=== PATIENT | female | born 1985 ===

== ENCOUNTER 2024-06-07 16:27 | Outpatient (REF) | payer OTHER, SELFPAY ==
[2024-06-08 11:19] LABS: HPV 16,18/45 See PAP report
== END 2024-06-07 16:28 | disposition home or self-care (01) ==
LOC: HO.HHCLNP 16:27
PROVIDERS: Visit Provider Advanced Practice Midwife
DX: Z12.4 Encounter for screening for malignant neoplasm of cervix (principal); Z11.51 Encounter for screening for human papillomavirus (HPV)
CPT/HCPCS: 87624; 88175

== ENCOUNTER 2025-06-07 19:13 | Outpatient (REF) | payer OTHER, SELFPAY ==
--- OUTSIDE RECORDS SUMMARY | 2025-06-07 15:45 | XMS_ITS | Encounter Summary ---
Author Organization [facility] Address [address] [facility] [address] [place] [address] Care Team Providers Care Machine Sweeper Brush Maker Name Role Phone Lauro Ornelas MD Primary Care Prov ider Reason for Referral * Imaging (Urgent) - Pending Review Specialty Diagnoses / Procedures Referred By Chemo nichole Referred To Contact Radiology Diagnoses Mass overlapping multiple quadrants of left breast Procedures BI Mammogram Diagnostic Tomosynthesis Bilateral Maria Guadalupe Osman CNM [address] [place] [address] Phone: tel: fax: Referral ID Status Reason Start Date Expiration Date V isits Requested Visits Authorized [id number] Pending Review 06/07/2025 06/07/2026 1 1 * Imaging (Urgent) - Pending Review Specialty Diagnoses / Procedures Referred By Chemo nichole Referred To Contact Radiology Diagnoses Mass overlapping multiple quadrants of left breast Procedures BI US Breast Limited Left Maria Guadalupe Osman CNM [address] [place] [address] Phone: tel: fax: Referral ID Status Reason Start Date Expiration Date V isits Requested Visits Authorized [id number] Pending Review 06/07/2025 06/07/2026 1 1 Reason for Visit * Reason Comments pap Encounter Details Date Type Department Care Team (Latest Contact Info) Description 06/07/2025 3:45 PM EST Procedure Visit [facility] [address] [place] [address] JacquiMaria Guadalupe, CNM [address] [place] [address] Cervical cancer screening (Primary Dx); Encounter for surveillance of contraceptive pills; Mass overlapping multiple quadrants of left breast Social History Tobacco Use Types Packs/Day Years Used Date Smoking Tobacco: Never Passive Smoke Exposure: Never Smokeless Tobacco: Never Tobacco Cessation:Counseling Given: Not Answered Alcohol Use Standard Drinks/Week Comments Not Currently 0 (1 standard drink = 0.6 oz pur e alcohol) Depression Answer Date Recorded Patient Health Questionnaire-9 Score 3 09/06/2024 Patient Health Questionnaire-9 Score 3 09/06/2024 Last PHQ-9: Questionnaire Data Not on file 0 09/06/2024 Housing Stability Answer Date Recorded What is your housing situation today? I have yana alexander 09/06/[address] you li ve. Do you have problems with any of the following? None of the above 09/06/2024 Food Insecurity Answer Date Recorded Within the past 12 months, y ou worried that your food would run out before you got money to buy more: Never True 09/06/2024 Within the past 12 months,th e food you bought just didn't last and you didn't have enough money to get more: Never True Transportation Answer Date Recorded In the past 12 months, has l ack of transportation kept you from medical appts, meetings, work or from getting things needed for daily living? No 09/06/2024 Utilities Answer Date Recorded In the past 12 months, has t he electric, gas, oil or water company threatened to shut off services in your home? No 09/06/2024 Depression Answer Date Recorded Patient Health Questionnaire-2 Score 2 09/06/2024 Internet Access Answer Date Recorded Internet Access Q1 Yes 09/06/2024 Internet Access Q2 Not on file 09/06/2024 Comments No Intention Date Recorded No desire to become (finding) 1 08/08/2024 Sex and Gender Information Value Date Recorded Sex Assigned at Female 04/21/2022 10:36 AM EDT Legal Sex Female 10:36 AM EDT Gender Identity Female 04/21/2022 10:36 AM EDT Sexual Orientation Straight 12/19/2022 9: 11 AM EDT documented as of this encounter Last Filed Vital Signs Vital Sign Reading Time Taken Comments Blood Pressure 120/70 06/07/2025 3:39 PM EST Pulse 100 06/07/2025 3:39 PM EST Temperature 37 C (98.6 F) 06/07/2025 3:39 PM EST Respiratory Rate 16 06/07/2025 3:39 PM EST Oxygen Saturation 99% 06/07/2025 3:39 PM EST Inhaled Oxygen Concentration - - Weight 50.7 kg (111 lb 12.8 oz) 06/07/2025 3:39 PM EST Height - - Body Mass Index 23.37 05/17/2025 3:50 PM EST documented in this encounter Progress Notes * Maria Guadalupe Osman CNM - 06/07/2025 3:45 PM EST Subjective Patient ID: Alexus Marquez is a 39 y.o. female who presents for pap LSIL, HPV pos pap 05/2024, preceded by NIL/HPV neg pap 2019. Due for co-testing now. Received HPV series this year. Mammogram BIRADS 1, cat c 10/2024. She would like to review letter about breast density that she received from radiology. Notes left breast mass that has been present for over a year. It looks like imaging ordered in 2023, not done. Custodial AMAB partner at last visit with me. On Nancy. 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 Concerned about impact on vascular health with combination oral contraceptive pill. It sounds like mother may have had blood clot. Would like to discuss control options, specifically implant and pill. 1 fpc AMAB partner, no safety concerns. Review of Systems Eyes: Negative for visual disturbance. Respiratory: Negative for shortness of breath. Cardiovascular: Negative for chest pain and leg swelling. Genitourinary: Negative for dyspareunia, dysuria, frequency, genital sores, hematuria, menstrual problem, pelvic pain, urgency, vaginal bleeding, vaginal discharge and vaginal pain. No abnormal bleeding, no breast pain, no nipple discharge Skin: Negative for color change. Neurological: Negative for headaches. Objective BP 120/70 (BP Location: Left arm, Patient Position: Sitting, BP Cuff Size: Adult) Pulse 100 Temp 98.6 ??F (37 ??C) (Oral) Resp 16 Wt 111 lb 12.8 oz (50.7 kg) LMP 05/24/2025 SpO2 99% BMI23.37 kg/m?? Physical Exam Manager Clinical present: declines clinical biostatistics director. Constitutional: Appearance: Normal appearance. Chest: Breasts: Right: Normal. No swelling, bleeding, inverted nipple, mass, nipple discharge, skin change or tenderness. Left: Mass present. No swelling, bleeding, inverted nipple, nipple discharge, skin change or tenderness. Comments: 1.5cm mass left breast at 6 oclock, mobile (noted on 07/2023 exam as well) Pacemaker in left chest Genitourinary: General: Normal vulva. Labia: Right: No rash, tenderness, lesion or injury. Left: No rash, tenderness, lesion or injury. Vagina: Normal. No signs of injury and foreign body. No vaginal discharge, erythema, tenderness, bleeding or lesions. Cervix: No cervical motion tenderness, discharge, friability, lesion, erythema, cervical bleeding or eversion. Uterus: Normal. Not enlarged and not tender. Adnexa: Right adnexa normal and left adnexa normal. Right: No mass, tenderness or fullness. Left: No mass, tenderness or fullness. Lymphadenopathy: Upper Body: Right upper body: No supraclavicular or axillary adenopathy. Left upper body: No supraclavicular or axillary adenopathy. Neurological: Mental Status: She is alert. Psychiatric: Mood and Affect: Mood normal. Behavior: Behavior normal. Assessment/Plan Diagnoses and all orders for this visit: Cervical cancer screening - Pap Smear Cotest 1 year if normal/HPV negative Encounter for surveillance of contraceptive pills Reviewed implant vs progestin only pill. Would like to try progestin only pill. Rx sent in, start when due to start next pack of pills. Reviewed side effects and danger signs. Irregular or absent periods common, absent periods not worrisome. Mass overlapping multiple quadrants of left breast Diagnostic imaging ordered. Will contact with results. Reviewed implications of dense breast tissue. Lifetime risk of breast cancer 9.2%. Will continue with routine screening if no additional testing indicated after imaging ordered today. documented in this encounter Plan of Treatment Upcoming Encounters Date Type Department Care Team (Late st Contact Info) Description 06/12/2025 3:30 PM EST Telemedicine [facility] MED & PEDS [address] [place] [address] Lauro Ornelas MD [address] [place] [address] Scheduled Orders Name Type Priority Associated Diagnoses Orde r Schedule Pap Smear Pathology and Cytology Routine Cervical cancer screening Ordered: 06/07/2025 BI US Breast Limited Left Imaging Urgent Mass overlapping multiple quadrants of left breast Expected: 06/07/2025, Expires: 06/07/2026 BI Mammogram Diagnostic Tomosynthesis Bilateral Imaging Urgent Mass overlapping multiple quadrants of left breast Expected: 06/07/2025, Expires: 08/08/2026 documented as of this encounter Visit Diagnoses Diagnosis Cervical cancer screening- Primary Screening for malignant neoplasm of the cervix Encounter for surveillance of contraceptive pills Mass overlapping multiple quadrants of left breast documented in this encounter Additional Health Concerns Assessment Noted Time PHQ-9 Depression Total Score: 3 09/07/19 25 10:12 AM EDT documented as of this encounter Care Teams Machine Sweeper Brush Maker Relationship Specialty Start Date End Date Lauro Ornelas MD [address] [place] [address] PCP - General Internal Medicine 05/04/20 documented as of this encounter
--- OUTSIDE RECORDS SUMMARY | 2025-06-07 21:10 | XMS_ITS | Encounter Summary ---
Author Organization [employer] Address [address] [place] [address] Care Team Providers Care Die Cast Engineer Name Role Phone Lauro Ornelas MD Primary Care Prov ider Encounter Details Date Type Department Care Team (Late st Contact Info) Description 10/18/2024 Orders Only [facility] MED & PEDS [address] [place] [address] Merry Olvera Social History Tobacco Use Types Packs/Day Years Used Date Smoking Tobacco: Never Passive Smoke Exposure: Never Smokeless Tobacco: Never Alcohol Use Standard Drinks/Week Comments Not Currently [...] Q2 Not on file 09/06/2024 Comments No Sex and Gender Information Value Date Recorded Sex Assigned at Female 04/21/2022 10:36 AM EDT Legal Sex Female 10:36 AM EDT Gender Identity Female 04/21/2022 10:36 AM EDT Sexual Orientation Straight 12/19/2022 9: 11 AM EDT documented as of this encounter Plan of Treatment Upcoming Encounters Date Type Department Care Team (Late st Contact Info) Description 06/12/2025 3:30 PM EST Telemedicine [facility] MED [facility] PEDS [address] [place], [place] [phone] Lauro Ornelas MD [address] [place] [address] documented as of this encounter Procedures Procedure Name Priority Date/Time Associated Diagnosis Comments HPV MRNA E6/E7 REFLEX TO HPV 16, 18/45 Routine 06/07/2024 12:00 AM EST documented in this encounter Results * (ABNORMAL) HPV mRNA E6/E7 w/Reflex to HPV Genotypes 16, 18/45 (06/07/2024 12:00 AM EST) Historical Provider LAB CYTOLOGY ORDERABLES F inal Result documented in this encounter Visit Diagnoses Not on filedocumented in this encounter Additional Health Concerns Assessment Noted Time PHQ-9 Depression Total Score: 3 09/07/19 25 10:12 AM EDT documented as of this encounter Care Teams Die Cast Engineer Relationship Specialty Start Date End Date Lauro Ornelas MD [address] [place] [address] PCP - General Internal Medicine 05/04/20 documented as of this encounter
--- OUTSIDE RECORDS SUMMARY | 2025-06-07 21:10 | XMS_ITS | Encounter Summary ---
Author Organization [employer] Address [address] [facility] 7[address] [place] [address] Care Team Providers Care Labor Gang Supervisor Name Role Phone Lauro Ornelas MD Primary Care Prov ider Encounter Details Date Type Department Care Team (Latest Contact Info) Description 06/07/2025 Travel Social History Tobacco Use Types Packs/Day Years [...] is your housing situation today? I have ayna alexander 09/06/[address] you [...] Info) Description 06/12/2025 3:30 PM EST Telemedicine [facility] MED & PEDS [address] [place] [address] Lauro Ornelas MD [address] [place] [address] documented as of this encounter Visit Diagnoses Not on filedocumented in this encounter Additional Health Concerns Assessment Noted Time PHQ-9 Depression Total Score: 3 09/07/19 25 10:12 AM EDT documented as of this encounter Care Teams Labor Gang Supervisor Relationship Specialty Start Date End Date Lauro Ornelas MD [address] [place] [address] PCP - General Internal Medicine 05/04/20 documented as of this encounter
--- OUTSIDE RECORDS SUMMARY | 2025-06-07 21:10 | XMS_ITS | Encounter Summary ---
Author Organization [employer] Address [address] [facility] [address] [place] [address] Care Team Providers Care Sales Service Manager Name Role Phone Lauro Ornelas MD Primary Care Prov ider Reason for Visit * Reason Comments Med Refill Encounter Details Date Type Department Care Team ([facility] st Contact Info) Description 11/21/2024 Refill [facility] MED & PEDS [address] [place], [place] [phone] Lauro Ornelas MD [address] [place] [address] Anxiety Social History Tobacco Use Types Packs/Day Years [...] Info) Description 06/12/2025 3:30 PM EST Telemedicine [facility] MED & PEDS [address] [place] [address] Lauro Ornelas MD [address] [place] [address] documented as of this encounter Visit Diagnoses Diagnosis Anxiety Anxiety state, unspecified documented in this encounter Additional Health Concerns Assessment Noted Time PHQ-9 Depression Total Score: 3 09/07/19 25 10:12 AM EDT documented as of this encounter Care Teams Sales Service Manager Relationship Specialty Start Date End Date Lauro Ornelas MD [address] [place] [address] PCP - General Internal Medicine 05/04/20 documented as of this encounter
--- OUTSIDE RECORDS SUMMARY | 2025-06-07 21:10 | XMS_ITS | Encounter Summary ---
Author Organization [employer] Address [address] [facility] [address] [place] [address] Care Team Providers Care Epic Cadence Specialists Name Role Phone Luaro Ornelas MD Primary Care Prov ider Reason for Visit * Reason Onset Date Comments Appointment Request 10/20/2023 Encounter Details Date Type Department Care Team (Late st Contact Info) Description 10/20/2023 Telephone [facility] [address] [place] [address] Lauro Ornelas MD [address] [place], [place] [phone] Appointment Request Social History Tobacco Use Types Packs/Day Years Used Date Smoking Tobacco: Never Passive Smoke Exposure: Never Smokeless Tobacco: Never Alcohol Use Standard Drinks/Week Comments Not Currently 0 (1 standard drink = 0.6 oz pur e alcohol) Depression Answer Date Recorded Patient Health Questionnaire-9 Score 7 08/06/2023 Patient Health Questionnaire-9 Score 7 08/06/2023 Last PHQ-9: Questionnaire Data Not on file 0 08/06/2023 Housing Stability Answer Date Recorded What is your housing situation today? I have yana alexander 04/13/[address] you li ve. Do you have problems with any of the following? None of the above 04/13/2023 Food Insecurity Answer Date Recorded Within the past 12 months, y ou worried that your food would run out before you got money to buy more: Never True 04/13/2023 Within the past 12 months,th e food you bought just didn't last and you didn't have enough money to get more: Never True Transportation Answer Date Recorded In the past 12 months, has l ack of transportation kept you from medical appts, meetings, work or from getting things needed for daily living? No 04/13/2023 Utilities Answer Date Recorded In the past 12 months, has t he electric, gas, oil or water company threatened to shut off services in your home? No 04/13/2023 Depression Answer Date Recorded Patient Health Questionnaire-2 Score 0 08/06/2023 Comments No Sex and Gender Information Value Date Recorded Sex Assigned at Female 04/21/2022 10:36 AM EDT Legal Sex Female 10:36 AM EDT Gender Identity Female 04/21/2022 10:36 AM EDT Sexual Orientation Straight 12/19/2022 9: 11 AM EDT documented as of this encounter Miscellaneous Notes * Telephone Encounter - Yury Magdaleno - 10/20/2023 12:06 PM EDT Tc from pt requesting to r/s Derm appt for 11/12. Please contact pt at [phone]. documented in this encounter Plan of Treatment Upcoming Encounters Date Type Department Care Team (Late st Contact Info) Description 06/12/2025 3:30 PM EST Telemedicine [facility] MED & PEDS [address] [place] [address] Lauro Ornelas MD [address] [place] [address] documented as of this encounter Visit Diagnoses Not on filedocumented in this encounter Additional Health Concerns Assessment Noted Time PHQ-9 Depression Total Score: 7 08/06/19 24 1:13 PM EST documented as of this encounter Care Teams Epic Cadence Specialists Relationship Specialty Start Date End Date Lauro Ornelas MD [address] [place] [address] PCP - General Internal Medicine 05/04/20 documented as of this encounter
--- OUTSIDE RECORDS SUMMARY | 2025-06-07 21:10 | XMS_ITS | Encounter Summary ---
Author Organization [employer] Address [address] [facility] [address] [place] [address] Care Team Providers Care Divisional Merchandising Manager Name Role Phone Lauro Ornelas MD Primary Care Prov ider Encounter Details Date Type Department Care Team (Late st Contact Info) Description 06/16/2023 Telephone [facility] [address] [place] [address] Lauro Ornelas MD [address] [place], [place] [phone] Social History Tobacco Use Types Packs/Day Years Used Date Smoking Tobacco: Never Passive Smoke Exposure: Never Smokeless Tobacco: Never Alcohol Use Standard Drinks/Week Comments Defer 0 (1 standard drink = 0.6 oz pur e alcohol) Depression Answer Date Recorded Patient Health Questionnaire-9 Score 0 07/30/2022 Housing Stability Answer Date Recorded What is [...] Date Recorded Patient Health Questionnaire-2 Score 0 07/30/2022 Comments Unknown Sex and Gender Information Value Date Recorded Sex Assigned at Female 04/21/2022 10:36 AM EDT Legal Sex Female 10:36 AM EDT Gender Identity Female 04/21/2022 10:36 AM EDT Sexual Orientation Straight 12/19/2022 9: 11 AM EDT documented as of this encounter Plan of Treatment Upcoming Encounters Date Type Department Care Team (Late st Contact Info) Description 06/12/2025 3:30 PM EST Telemedicine [facility] MED & PEDS [address] [place] [address] Lauro Ornelas MD [address] [place] [address] documented as of this encounter Visit Diagnoses Not on filedocumented in this encounter Additional Health Concerns Assessment Noted Time PHQ-9 Depression Total Score: 0 07/30/19 23 2:13 PM EST documented as of this encounter Care Teams Divisional Merchandising Manager Relationship Specialty Start Date End Date Lauro Ornelas MD [address] [place] [address] PCP - General Internal Medicine 05/04/20 documented as of this encounter
--- OUTSIDE RECORDS SUMMARY | 2025-06-07 21:10 | XMS_ITS | Encounter Summary ---
Author Organization [employer] Address [address] [facility] [address] [place] [address] Care Team Providers Care Back Tufter Name Role Phone Lauro Ornelas MD Primary Care Prov ider Reason for Visit * Reason Onset Date Comments referral bill 04/25/2025 Encounter Details Date Type Department Care Team ([facility] st Contact Info) Description 04/25/2025 Telephone [facility] MED & PEDS [address] [place] [address] Lauro Ornelas MD [address] [place] [address] referral bill Social History Tobacco Use Types Packs/Day Years [...] encounter Miscellaneous Notes * Telephone Encounter - Kavya Pablo RN - 04/25/2025 11:04 AM EST Called pt regarding cardiology referral, spoke to pt through [employer] Retail Supervisor #[id number]. Pt reports when she spoke to the cardiology office about upcoming follow up appointment, they told her she would have to pay regarding her insurance. Pt reports goes to [facility] and has never had to pay before. Advised could be the referral needs to be renewed or the office may not have any updated insura nce information. Advised pt to call [facility] for guidance, call cardiology to verify her valid insurance and we will submit a new cardiology referral to update. Pt understands and agrees with plan. Insurance verified MH. * Telephone Encounter - Mary Luna - 04/25/2025 9:22 AM EST Tc from pt regarding cardiology referral and states [facility] and they advised call pcp office and have provider call us to let us know referral is important and you do not have the means to pay for apt so you are not billed . Air Brake Worker does not see any cardiology referral but [facility] Contact pt at [phone] (singaporean) documented in this encounter Plan of Treatment Upcoming Encounters Date Type Department Care Team (Late st Contact Info) Description 06/12/2025 3:30 PM EST Telemedicine [facility] MED & PEDS [address] [place] [address] Lauro Ornelas MD [address] [place] [address] documented as of this encounter Visit Diagnoses Not on filedocumented in this encounter Additional Health Concerns Assessment Noted Time PHQ-9 Depression Total Score: 3 09/07/19 25 10:12 AM EDT documented as of this encounter Care Teams Back Tufter Relationship Specialty Start Date End Date Lauro Ornelas MD [address] [place] [address] PCP - General Internal Medicine 05/04/20 documented as of this encounter
--- OUTSIDE RECORDS SUMMARY | 2025-06-07 21:10 | XMS_ITS | Clinical Summary ---
Author Organization [employer] Address [address] [facility] 7[address] [place] [address] Care Team Providers Care Group Work Program Aide Name Role Phone Lauro Ornelas MD Primary Care Prov ider Allergies No known active allergies Medications * This document contains information received from the source organization and may not represent a complete record from that organization. calcium carbonate (Os-Damion) 1250 (500 Ca) MG chewable tablet Take 1 tablet by mouth as needed (OTC) Active cholecalcifero l (Vitamin D-3) 10 MCG (400 UNIT) capsule Take 1 capsule by mouth daily (OTC) Active ceramides (Cerave) lotion Apply 1 drop topically every 12 (twelve) hours. 05/04/20 20 Active ibuprofen 600 MG tabletIndicati ons:Periodonta l disease Take 1 tablet (600 mg) by mouth every 6 (six) hours if needed for mild pain for up to 20 doses. 20 tablet 05/10/20 24 Active hydrOXYzine HCl (Atarax) 25 MG tablet Take 1 tablet (25 mg) by mouth if needed in the morning, at noon, and at bedtime for anxiety. 90 tablet 3 05/17/2025 4:32 PM EST 11/23/19 25 025 Active traZODone (Desyrel) 50 MG tablet Take 1 tablet (50 mg) by mouth at bedtime. 90 tablet 3 05/17/2025 4:32 PM EST 11/23/19 25 026 Active Drospirenone (Slynd) 4 MG tablet Take 1 tablet by mouth Once per day. 28 tablet 11 06/07/20 25 Active drospirenone-e thinyl estradiol (Nancy, Ocella) 3-0.03 MG tablet Take 1 tablet by mouth Once per day. 90 tablet 3 05/04/2025 8:21 AM EST 11/23/19 25 025 Discontinued Active Problems Problem Noted Date Diagnosed Date Numbness and tingling of both legs 05/17/2025 Immunization due 08/06/2023 Exercise counseling 07/30/2022 Dietary counseling 07/30/2022 Annual physical exam 07/30/2022 Assessment & Plan (09/06/2024 4:26 PM EDT): Normal physical examination Will order routine blood work Mammogram will be ordered Assessment & Plan (07/30/2022 5:30 PM EST): Will place order to get blood work, physical examination was unremarkable. Anxiety 07/30/2022 Assessment & Plan (08/06/2023 12:55 PM EST): Continue hydroxyzine as needed, no changes will be made, no suicidal/homicidal ideas Assessment & Plan (11/04/2022 1:06 PM EDT): Assessment: Patient with anxiety, (difficult to control worry, sadness, periods of heart palpitations, increased tearfulness, and fear of her mothers ) in the context of biopsychosocial stressor of her mother living in [place] and unable to see her or for her to fly. Patient will benefit from OP therapy. At this time Alexus Marquez meets criteria for Visit Diagnoses: Problem List Items Addressed This Visit Other Anxiety Patient ready to address current needs Yes Strengths include previous success with OP therapy PLAN: 1. Follow up with [facility]: Not recommended for follow-up 2. Patient goal is to engage in OP therapy 3. Behavioral Recommendations a. Deep Breathing b. Walking Assessment & Plan (10/16/2022 8:40 AM EDT): On hydroxyzine as needed, will refer to behavioral therapist, no suicidal/homicidal ideas Assessment & Plan (07/30/2022 5:29 PM EST): Following counselor, no suicidal/homicidal ideas, continue hydroxyzine, Second degree AV block 06/24/2022 Assessment & Plan (09/06/2024 4:26 PM EDT): Followed by cardiology, device recently examined, Assessment & Plan (08/06/2023 12:55 PM EST): Followed by cardiology, no new events, follow up reccomendations Assessment & Plan (10/16/2022 8:40 AM EDT): Followed by cardiology, no new events, will follow specialist recommendations Assessment & Plan (07/30/2022 5:30 PM EST): Follow up cardiology, wound healed well Encounters Date Type Department Care Team Description 06/07/2025 3:45 PM EST Procedure Visit [facility] [address] [place] [phone] Codey Lu CNM Cervical cancer screening (Primary Dx); Encounter for surveillance of contraceptive pills; Mass overlapping multiple quadrants of left breast 06/07/2025 Travel 06/06/2025 Telephone [facility] [address] [place] [phone] Faiza Ramsey MA 05/17/2025 4:00 PM EST Office Visit [facility] [address] [place] [address] Reyna Steinberg MD Numbness and tingling of both legs (Primary Dx) 05/17/2025 Travel 05/16/2025 Telephone [facility] [address] [place] [address] Lauro Ornelas MD Nurse Triage 04/25/2025 Telephone [facility] [address] [place] [address] Lauro Ornelas MD referral bill 03/21/2025 Telephone [facility] [address] [place] [phone] Faiza Ramsey MA from Last 3 Months Immunizations Immunization Administration Dates Next Due HPV 9-Valent 12/22/2024,07/26/2024,06/23/2024 Influenza injectable quadriv alent preservative free 03/21/2022,04/15/2021 Tdap 08/06/2023 Family History Medical History Relation Name Comments Breast cancer Neg Hx Colon cancer Neg Hx Ovarian cancer Neg Hx Social History Tobacco Use Types Packs/Day Years [...] Orientation Straight 12/19/2022 9: 11 AM EDT Last Filed Vital Signs Vital Sign Reading Time Taken Comments Blood Pressure 120/70 06/07/2025 3:39 PM EST Pulse 100 06/07/2025 3:39 PM EST Temperature 37 C (98.6 F) 06/07/2025 3:39 PM EST Respiratory Rate 16 06/07/2025 3:39 PM EST Oxygen Saturation 99% 06/07/2025 3:39 PM EST Inhaled Oxygen Concentration - - Weight 50.7 kg (111 lb 12.8 oz) 06/07/2025 3:39 PM EST Height 147.3 cm (4' 10 ) 05/17/2025 3:50 PM EST Body Mass Index 23.37 05/17/2025 3:50 PM EST Plan of Treatment Upcoming Encounters Date Type Department Care Team (Late st Contact Info) Description 06/12/2025 3:30 PM EST Telemedicine [facility] [address] [place], [place] [phone] MontoyaLauro Munroe MD [address] [place], [place] [phone] Health Maintenance Due Date Last Done Comments Hepatitis B Vaccines (1 of 3 - 19+ 3-dose series) 10/31/2003 Dental Oral Exam 10/14/2024 04/14/2024, , 12/19/2022 Dental Prophylaxis 02/16/2025 08/18/2024, 0 02/04/2024, 09/16/2023, Additional history exists COVID-19 Vaccine ( season) 2025 07/08/2021, 12/21/2020, 11/30/2020 Influenza Vaccine (#1) 2025 03/21/2022, 2020 Dental X-Ray: Bitewings 04/15/2025 04/14/20 24, 09/16/2023, 08/26/2023, Additional history exists Cervical Cancer Screening 06/07/2025 HPV/Cotest 06/07/2025 06/07/2024, 05/29/2020 Pap Smear 06/07/2025 06/07/2024, 12/0 01/2020, 05/29/2020 Alcohol/Substance Use Screening 09/06/2025 09/06/2024 Depression Screening 09/06/2025 09/06/2024, 09/07/19 SDOH Screening 09/06/2025 09/06/2024 Dental X-Ray: Full Mouth 12/20/2025 12/19/2022 Disability Screening 06/07/2026 06/07/2025 Family Planning (PISQ) 06/07/2026 06/07/2025 Tobacco Screening 06/07/2026 06/07/2025 Mammogram 11/10/2026 11/10/2024 DTaP/Tdap/Td Vaccines (2 - Td or Tdap) 08/06/2033 08/06/2023 Zoster Vaccines (1 of 2) 2034 RSV Patients and Patients Aged 60 years or older (1 - 1-dose 75+ series) 10/31/2059 HIV Screening Completed 08/01/2022, 07/2019, 04/23/2020 Hepatitis C Screening Completed 08/01/2022, 020 HPV Vaccines Completed 12/22/2024, 09/2024, 06/23/2024 HIB Vaccines Aged Out No longer eligi ble based on patient's age to complete this topic Hepatitis A Vaccines Aged Out No long er eligible based on patient's age to complete this topic IPV Vaccines Aged Out No longer eligi ble based on patient's age to complete this topic Meningococcal B Vaccine Aged Out No l onger eligible based on patient's age to complete this topic Meningococcal Vaccine Aged Out No fidel kaylene eligible based on patient's age to complete this topic Pneumococcal Vaccine: Pediatrics (0 to 5 Years) and At-Risk Patients (6 to 49) Years Aged Out No longer eligible based on patient's age to complete this topic RSV under 20 months Aged Out No longe r eligible based on patient's age to complete this topic Rotavirus Vaccines Aged Out No longer eligible based on patient's age to complete this topic Procedures Procedure Name Priority Date/Time Associated Diagnosis Comments BI MAMMOGRAM SCREENING TOMOSYNTHESIS BILATERAL Routine 11/10/2024 2:50 PM EDT Second degree AV block PROPHYLAXIS - ADULT Routine 08/18/2024 3 :00 PM EST PAP SMEAR Routine 06/07/2024 1:49 PM EST Routine cervical smear HPV MRNA E6/E7 REFLEX TO HPV 16, 18/45 Routine 06/07/2024 12:00 AM EST BITEWINGS - 4 RADIOGRAPHIC IMAGES Routine 04/14/2024 3:00 PM EDT Periodontal disease Dental caries PERIODIC ORAL EVALUATION - ESTABLISHED PATIENT Routine 04/14/2024 3:00 PM EDT Periodontal disease Dental caries INTRAORAL - COMPLETE SERIES OF RADIOGRAPHIC IMAGES Routine 12/19/2022 9:00 AM EDT HEPATITIS C AB W/REFL TO HCV RNA, QN, PCR Routine 08/01/2022 9:57 AM EST Second degree AV block Anxiety Irregular menses HIV 1 RNA, QN PCR W/RFL DEIDRA (RTI,PI,INTEGRASE) Routine 08/01/2022 9:57 AM EST Second degree AV block Anxiety Irregular menses from Last 3 Months or Most Recently Relevant to Health Maintenance Results * BI Mammogram Screening Tomosynthesis Bilateral (11/10/2024 2:50 PM EDT) Anatomical Region Laterality Modality Breast Bilateral Mammography 11/10/2024 2:50 PM EDT Narrative 11/19/2024 11:56 AM EDT [facility] [address] [place] [address] Mammography Report Signed Patient: Alexus Marquez MR#: [id number] : 1985 Acct:[id number] Age/Sex: 39 / F ADM Date: 11/10/24 Loc: HO.MAMMO Attending Dr: Lauro Victoria MD Ordering Physician: Lauro Ornelas MD Res ults: 1Negative Date of Service: 11/10/24 Follow Up: 1 Year From Orig ina Mammogram Procedure(s): MM tomosynthesis screening BI Accession Number(s): [id number] cc: Lauro Ornelas MD EXAMINATION: MM SCREENING DIGITAL BREAST TOMOSYNTHESIS, BILATERAL CLINICAL INFORMATION: Screening. Asymptomatic. COMPARISON: Mammography: Baseline. TECHNIQUE: Digital breast mammography with tomosynthesis is performed in both the craniocaudal and mediolateral oblique views along with computer-aided detection (CAD). FINDINGS: The breasts are heterogeneously dense, which may obscure small masses (ACR BI-RADS breast composition Category c). There are no significant masses, abnormal calcifications, or other abnormalities. MM/MM tomosynthesis screening BI IMPRESSION: No mammographic evidence of malignancy. ASSESSMENT: BI-RADS BI-RADS 1 - Negative RECOMMENDATION: Routine annual mammography screening. 1 year F/U This examination should not preclude the clinical evaluation of a suspicious palpable abnormality. This patient's information was entered into a reminder system with a target due date for their next mammogram. Electronically signed by: Emiliana Schwartz DO 11/19/2024 11:53 AM EDT RP Dictated By: Emiliana Schwartz DO Signed By: <Electronically signed by Emiliana Schwartz DO in OV> 11/19/24 1153 DD/ 1450 TD/TT: 11/10/24 1506 Ignition Expert: Procedure Note Donotuseinterpreter, Image - 11/21/2024 [facility] [address] [place] [address] Mammography Report Signed Patient: Alexus Marquez#: [id number] : 1985Acct:[id number] Age/Sex: 39 / FADM Date: 11/10/24 Loc: HO.MAMMO Attending Dr: Lauro Victoria MD Ordering Physician: Lauro Ornelas ults: 1Negative Date of Service: 11/10/24Follow Up: 1 Year From [facility] Mammogram Procedure(s): MM tomosynthesis screening BI Accession Number(s): [id number] cc: Lauro Ornelas MD EXAMINATION: MM SCREENING DIGITAL BREAST TOMOSYNTHESIS, BILATERAL CLINICAL INFORMATION: Screening. Asymptomatic. COMPARISON: Mammography: Baseline. TECHNIQUE: Digital breast mammography with tomosynthesis is performed in both the craniocaudal and mediolateral oblique views along with computer-aided detection (CAD). FINDINGS: The breasts are heterogeneously dense, which may obscure small masses (ACR BI-RADS breast composition Category c). There are no significant masses, abnormal calcifications, or other abnormalities. MM/MM tomosynthesis screening BI IMPRESSION: No mammographic evidence of malignancy. ASSESSMENT: BI-RADS BI-RADS 1 - Negative RECOMMENDATION: Routine annual mammography screening. 1 year F/U This examination should not preclude the clinical evaluation of a suspicious palpable abnormality. This patient's information was entered into a reminder system with a target due date for their next mammogram. Electronically signed by: Emiliana Schwartz DO 11/19/2024 11:53 AM EDT RP Dictated By: Emiliana Schwartz DO Signed By: <Electronically signed by Emiliana Schwartz DO in OV> 11/19/24 1153 DD/ 1450 TD/TT: 11/10/24 1506 Ignition Expert: Lauro Victoria MD IM BI PROCEDURES Final Result * Pap Smear (06/07/2024 1:49 PM EST) Swab Cervix uteri structure / Unknown 06/07/2024 1:49 PM EST 06/08/2024 9:30 AM EST [facility] - 06/13/2024 5:17 PM EST ----- ------- Name: Alexus Suarez Age/Sex: 38/F : 1985 Unit#: [id number] Attend Dr: CODEY LU CNM Re06/07/24 Status: DEP REF Location: [facility] Disch: ----- ------- SPEC : [id number] RECD: 06/08/24 STATUS: AUNG THOMSON NUM: [id number] MYNOR: 06/07/24 [facility] DR: CODEY LU CNM ENTERED: 06/08/24 SP TYPE: Pap Smr OTHR DR: ORDERED: Pap Smear, PAP path review Interpretation ABNORMAL PAP TEST. Satisfactory for evaluation, with mildly dysplastic squamous cells / HPV cytopathic change (EBONY 1; low grade squamous intraepithelial lesion). HPV High Risk: POSITIVE HPV Genotyping 16: Negative HPV Genotyping 18: Negative Clinical Information LMP: Unknown date Previous PAP test: 2019, WNL Other history: Oral contraceptive Material Received ThinPrep-Cervical ----- ------- Signed (signature on file) Ruchi Riley MD 06/13/24 1717 ----- ------- END OF REPORT Codey Lu CNM LAB CYTOLOGY ORDERABLES F inal Result [facility] [address] [place] [phone] * (ABNORMAL) HPV mRNA E6/E7 w/Reflex to HPV Genotypes 16, 18/45 (06/07/2024 12:00 AM EST) [facility] Provider LAB CYTOLOGY ORDERABLES F inal Result * HIV-1 RNA, Quantitative, Real-Time PCR with Reflex to Genotype (RTI, PI, Integrase) (08/01/2022 9:57 AM EST) HIV 1 RNA, QN PCR NOT DETECTED copies/mL [facility], HIV 1 RNA, QN PCR NOT DETECTED Log copies/mL [email or web address], Comment: REFERENCE RANGE: NOT DETECTED copies/mL NOT DETECTED Log copies/mL This test was performed using Real-Time Polymerase Chain Reaction. Reportable range is 20 to 10,000,000 copies/mL (1.30-7.00 Log copies/mL). 08/01/2022 9:57 AM EST 08/01/2022 9:58 AM EST Narrative [facility] - 08/06/2022 4:36 PM EST FASTING:YES FASTING: YES Lauro Victoria MD LAB BLOOD ORDERABL ES Final Result [facility] [address], [place] [address] [facility], [address] [place] [address] * Hepatitis C Antibody with Reflex to HCV, RNA, Quantitative, Real-Time PCR (08/01/2022 9:57 AM EST) Pathologist [facility] [place] Hepatitis C Antibody NON-REACT MARY ANN NON-REACT MARY ANN [employer] [place] [employer] Index <0.02 <1.00 [employer] [place] Abigail Stewart Comment: HCV antibody was non-reactive. There is no laboratory evidence of HCV infection. In most cases, no further action is required. However, if recent HCV exposure is suspected, a test for HCV RNA (test code 87448) is suggested. For additional information please refer to http://[email or web address]/faq/SXT06r4 (This link is being provided for informational/ educational purposes only.) Blood Venous blood specimen / Unknown 08/01/2022 9:57 AM EST 08/01/2022 9:58 AM EST Narrative [facility] - 08/06/2022 4:36 PM EST FASTING:YES FASTING: YES Lauro Victoria MD LAB BLOOD ORDERABL ES Final Result [facility] [address] [facility], [facility], [place] [address] [employer] [facility] [address] [facility], ([address]) [place] [address] from Last 3 Months or Most Recently Relevant to Health Maintenance Insurance [facility] N FULL DENTAL - HSN FULL (MEDICAID[place] AD[place] Care Teams Group Work Program Aide Relationship Specialty Start Date End Date Lauro Ornelas MD [address] [place] [address] DELFINO Patel [address] PCP - General Internal Medicine 05/04/20
--- OUTSIDE RECORDS SUMMARY | 2025-06-07 21:10 | XMS_ITS | Encounter Summary ---
Author Organization [employer] Address [address] [facility] 7[address] [place] [address] Care Team Providers Care Travel Sales Consultant Name Role Phone Lauro Ornelas MD Primary Care Prov ider Reason for Visit * Reason Comments Med Refill Encounter Details Date Type Department Care Team ([facility] st Contact Info) Description 06/12/2023 Refill [facility] [address] [place] [address] Lauro Ornelas MD [address] [place], [place] [phone] Encounter for surveillance of contraceptive pills Social History Tobacco Use Types Packs/Day Years [...] Info) Description 06/12/2025 3:30 PM EST Telemedicine [facility] [address] [place] [address] Lauro Ornelas MD [address] [place] [address] documented as of this encounter Visit Diagnoses Diagnosis Encounter for surveillance of contraceptive pills documented in this encounter Additional Health Concerns Assessment Noted Time PHQ-9 Depression Total Score: 0 07/30/19 23 2:13 PM EST documented as of this encounter Care Teams Travel Sales Consultant Relationship Specialty Start Date End Date Lauro Ornelas MD [address] [place] [address] PCP - General Internal Medicine 05/04/20 documented as of this encounter
--- OUTSIDE RECORDS SUMMARY | 2025-06-07 21:10 | XMS_ITS | Encounter Summary ---
Author Organization [employer] Address [address] [facility] 7t [place] [address] Care Team Providers Care Rn Hedis Name Role Phone Lauro Ornelas MD Primary Care Prov ider Encounter Details Date Type Department Care Team (Late st Contact Info) Description 06/06/2025 Telephone [facility] [address] [place] [address] Faiza Ramsey MA Social History Tobacco Use Types Packs/Day Years [...] encounter Miscellaneous Notes * Telephone Encounter - Faiza Ramsey MA - 06/06/2025 3:33 PM EST Chart Prep Labs: not done Images: done Referrals: emg 06/13/25 [place] Jul 17 Vaccines due: Covid, Flu, and Hep B Screenings: not applicable Overdue care gaps: Disability screen documented in this encounter Plan of Treatment Upcoming Encounters Date Type Department Care Team (Late st Contact Info) Description 06/12/2025 3:30 PM EST Telemedicine [facility] [address] [place] [address] Lauro Ornelas MD [address] [place] [address] documented as of this encounter Visit Diagnoses Not on filedocumented in this encounter Additional Health Concerns Assessment Noted Time PHQ-9 Depression Total Score: 3 09/07/19 25 10:12 AM EDT documented as of this encounter Care Teams Rn Hedis Relationship Specialty Start Date End Date Lauro Ornelas MD [address] [place] [address] PCP - General Internal Medicine 05/04/20 documented as of this encounter
== END 2025-06-07 19:14 | disposition home or self-care (01) ==
LOC: HO.HHCLNP 19:13
PROVIDERS: Visit Provider Advanced Practice Midwife
DX: Z11.51 Encounter for screening for human papillomavirus (HPV) (principal); Z12.4 Encounter for screening for malignant neoplasm of cervix
CPT/HCPCS: 87626; 88175